=== PATIENT | male | born 1965 | race Two or more races ===

== ENCOUNTER 2022-04-01 05:37 | Inpatient (IN) | payer SELFPAY ==
[~2022-04-01] VITALS: Ht 170.2 cm; Wt 78.2 kg
[2022-04-01 06:30] LABS: BASOPHILS % (AUTO) 0.1 % (0-1); EOSINOPHILS % (AUTO) 0.1 % (0-6); HEMATOCRIT 44.5 % (42.0-52.0); HEMOGLOBIN 14.8 g/dl (14.0-17.9); LYMPHOCYTES # (AUTO) 0.7 X10'3 (1.1-4.8); LYMPHOCYTES % (AUTO) 5.9 % (21-51); MEAN CORPUSCULAR HEMOGLOBIN 29.8 PG (27.0-31.0); MEAN CORPUSCULAR HGB CONC 33.4 g/dL (33.0-36.5); MEAN CORPUSCULAR VOLUME 89.2 FL (78-98); MEAN PLATELET VOLUME 9.2 FL (7.4-10.4); MONOCYTES # (AUTO) 0.5 X10'3 (0-0.9); MONOCYTES % (AUTO) 4.9 % (2-12); NEUTROPHILS # (AUTO) 9.9 X10'3 (1.8-7.7); PLATELET COUNT 145 X10'3 (140-440); RED BLOOD COUNT 4.98 X10'6 (4.70-6.10); RED CELL DISTRIBUTION WIDTH 13.3 % (11.5-14.5); WHITE BLOOD COUNT 11.2 X10'3 (4.5-11.0)
[2022-04-01] MEDS ORDERED: normal saline 1000ML IV soln IVB ONE (06:45)
[2022-04-01 06:46] LABS: ALANINE AMINOTRANSFERASE 599 U/L (12-78); ALBUMIN/GLOBULIN RATIO 1.1 (1.1-1.5); ALKALINE PHOSPHATASE 120 IU/L (46-116); ANION GAP 7 (8-16); ASPARTATE AMINO TRANSFERASE 753 U/L (10-37); BILIRUBIN,TOTAL 1.2 MG/DL (0.1-1.0); BLOOD UREA NITROGEN 16 MG/DL (7-18); BUN/CREATININE RATIO 17.6 (5.4-32.0); CALCIUM 8.5 MG/DL (8.5-10.1); CHLORIDE 101 MMOL/L (99-107); CREATININE 0.91 MG/DL (0.60-1.10); GLUCOSE 162 MG/DL (70-104); POTASSIUM 3.9 MMOL/L (3.5-5.1); SODIUM 134 MMOL/L (135-145); TOTAL CARBON DIOXIDE 26.2 MMOL/L (24-32); TOTAL PROTEIN 7.8 G/DL (6.4-8.2); eGFR 86 ML/MIN
[2022-04-01] MEDS ORDERED: glycopyrrolate 0.2mg/ml inj IV ONE (06:55)
[2022-04-01 07:31] LABS: LIPASE 20419 U/L (73-393)
[2022-04-01] MEDS ORDERED: morphine 4 MG/ML inj SYRINge IV ONE (07:40)
[2022-04-01] MEDS ORDERED: ondansetron/PF 4mg/2ml inj IV ONE (07:40)
[2022-04-01 07:48] LABS: CLARITY,URINE CLEAR (Clear); COLOR,URINE YELLOW (Yellow); GLUCOSE, URINE 100 mg/dl (Neg); KETONES,URINE TRACE mg/dl (Neg); LEUKOCYTE ESTERASE ,URINE NEGATIVE (Neg); NITRITES, URINE NEGATIVE (Neg); OCCULT BLOOD,URINE NEGATIVE (Neg); PROTEIN,URINE NEGATIVE (Neg); UROBILINOGEN,URINE 0.2 E.U/dL (0.2-1.0)
[2022-04-01] MEDS ORDERED: iohexol 300mg/ml 100ml inj. ONE (07:54)
[2022-04-01 07:55] LABS: UA COLLECTION TYPE NON-SPECIFIED
[2022-04-01] MEDS ORDERED: magnesium Cl slow-release 64mg tablet PO PRN (11:30)
[2022-04-01] MEDS ORDERED: magnesium hydroxide 30ml (MOM) UD suspension PO PRN (11:30)
[2022-04-01] MEDS ORDERED: magnesium 4gm in 100ml NS 100 ML IV PRN (11:30)
[2022-04-01] MEDS ORDERED: potassium Cl 40MEQ/1/2NS 520ml 520 ML IV PRN (11:30)
[2022-04-01] MEDS ORDERED: potassium Cl 20 mEq SR tablet PO PRN ×2 (11:30)
[2022-04-01] MEDS ORDERED: mag hydrox/Alum hydrox/simeth 30ml oral suspension PO PRN (11:30)
[2022-04-01] MEDS ORDERED: ondansetron/PF 4mg/2ml inj IV PRN (11:30)
[2022-04-01] MEDS ORDERED: metoclopramide 5 mg/ml inj IV PRN (11:30)
[2022-04-01] MEDS ORDERED: acetaminophen 325mg tablet PO PRN (11:30)
[2022-04-01] MEDS ORDERED: HYDROmorphone/PF 0.2 MG/ML SYRINGE IV PRN (11:30)
[2022-04-01] MEDS: normal saline 1000ml 1,000 ML IV SCH ×2 (11:48→18:10)
[2022-04-01] MEDS ORDERED: CLOP75TA34 PO (13:18)
[2022-04-01] MEDS ORDERED: ATOR-2 PO (14:40)
[2022-04-01] MEDS ORDERED: ASPI-611 PO (14:40)
[2022-04-01] MEDS ORDERED: CLOP75TA33 PO ×2 (14:41→14:45)
[2022-04-01] MEDS: docusate sod 100mg capsule PO SCH (20:00)
[2022-04-01] MEDS: K and/or MAG REPLACEMENT MC SCH (20:05)
[2022-04-01] MEDS: enoxaparin 30mg/0.3ml syringe SQ SCH (20:14)
--- NOTE | 2022-04-01 22:42 | NUR ---
Patient sleeping at this time, no distress noted. Chest rise noted even, breathing unlabored. Maintained on NSS infusion as ordered.
[2022-04-02] MEDS: normal saline 1000ml 1,000 ML IV SCH ×4 (00:52→23:10)
--- NOTE | 2022-04-02 02:56 | NUR ---
Report called to Jessica on Tele 3, patient cleared for transport to receiving unit.
[2022-04-02 06:34] LABS: BASOPHILS % (AUTO) 0.3 % (0-1); EOSINOPHILS # (AUTO) 0.3 X10'3 (0-0.9); EOSINOPHILS % (AUTO) 4.7 % (0-6); HEMATOCRIT 40.1 % (42.0-52.0); HEMOGLOBIN 13.1 g/dl (14.0-17.9); LYMPHOCYTES # (AUTO) 1.8 X10'3 (1.1-4.8); MEAN CORPUSCULAR HEMOGLOBIN 29.4 PG (27.0-31.0); MEAN CORPUSCULAR HGB CONC 32.6 g/dL (33.0-36.5); MEAN CORPUSCULAR VOLUME 89.9 FL (78-98); MEAN PLATELET VOLUME 9.2 FL (7.4-10.4); MONOCYTES # (AUTO) 0.5 X10'3 (0-0.9); NEUTROPHILS # (AUTO) 3.6 X10'3 (1.8-7.7); PLATELET COUNT 131 X10'3 (140-440); RED BLOOD COUNT 4.46 X10'6 (4.70-6.10); RED CELL DISTRIBUTION WIDTH 13.7 % (11.5-14.5); WHITE BLOOD COUNT 6.2 X10'3 (4.5-11.0)
[2022-04-02 07:00] VITALS: BP 108/66
[2022-04-02 07:16] LABS: ALANINE AMINOTRANSFERASE 292 U/L (12-78); ALBUMIN/GLOBULIN RATIO 0.9 (1.1-1.5); ALKALINE PHOSPHATASE 94 IU/L (46-116); ANION GAP 3 (8-16); ASPARTATE AMINO TRANSFERASE 125 U/L (10-37); BILIRUBIN,TOTAL 1.4 MG/DL (0.1-1.0); BLOOD UREA NITROGEN 11 MG/DL (7-18); BUN/CREATININE RATIO 12.4 (5.4-32.0); CHLORIDE 106 MMOL/L (99-107); CREATININE 0.89 MG/DL (0.60-1.10); GLUCOSE 93 MG/DL (70-104); POTASSIUM 3.9 MMOL/L (3.5-5.1); SODIUM 138 MMOL/L (135-145); TOTAL CARBON DIOXIDE 28.6 MMOL/L (24-32); TOTAL PROTEIN 6.4 G/DL (6.4-8.2); eGFR 88 ML/MIN
[2022-04-02] MEDS: aspirin 81mg, enteric-coated 1 TAB TABLET.DR PO SCH (07:47)
[2022-04-02] MEDS: enoxaparin 30mg/0.3ml syringe SQ SCH ×2 (07:47→21:00)
[2022-04-02] MEDS: K and/or MAG REPLACEMENT MC SCH ×2 (08:00→20:00)
[2022-04-02] MEDS: docusate sod 100mg capsule PO SCH ×2 (08:00→21:00)
[2022-04-02 08:04] LABS: CALCIUM 7.8 MG/DL (8.5-10.1)
[2022-04-02 08:25] LABS: LIPASE 2017 U/L (73-393)
[2022-04-02 11:00] VITALS: BP 115/72
--- NOTE | 2022-04-02 12:26 | NUR ---
RN spoke to Dr. Vázquez at bedside. Dr. Vázquez informed RN that pt would likely need ERCP and that he would update RN later when he had more information.
[2022-04-02 15:00] VITALS: BP 111/69
[2022-04-02 18:00] VITALS: BP 115/64
[2022-04-02 22:00] VITALS: BP 112/65
[2022-04-03] VITALS (21 sets, daily range): BP systolic 108–155; BP diastolic 63–95
[2022-04-03 07:17] LABS: BASOPHILS % (AUTO) 0.3 % (0-1); EOSINOPHILS # (AUTO) 0.4 X10'3 (0-0.9); EOSINOPHILS % (AUTO) 5.9 % (0-6); HEMATOCRIT 39.4 % (42.0-52.0); LYMPHOCYTES % (AUTO) 28.2 % (21-51); MEAN CORPUSCULAR HEMOGLOBIN 29.5 PG (27.0-31.0); MEAN CORPUSCULAR VOLUME 89.6 FL (78-98); MEAN PLATELET VOLUME 9.5 FL (7.4-10.4); MONOCYTES # (AUTO) 0.7 X10'3 (0-0.9); MONOCYTES % (AUTO) 9.6 % (2-12); NEUTROPHILS # (AUTO) 3.9 X10'3 (1.8-7.7); PLATELET COUNT 133 X10'3 (140-440); RED BLOOD COUNT 4.39 X10'6 (4.70-6.10); RED CELL DISTRIBUTION WIDTH 13.5 % (11.5-14.5); WHITE BLOOD COUNT 6.9 X10'3 (4.5-11.0)
[2022-04-03] MEDS: normal saline 1000ml 1,000 ML IV SCH ×4 (07:46→23:06)
[2022-04-03] MEDS: atorvastatin 20mg tablet PO SCH (07:46)
[2022-04-03] MEDS: docusate sod 100mg capsule PO SCH ×2 (07:46→19:28)
[2022-04-03] MEDS: enoxaparin 30mg/0.3ml syringe SQ SCH ×2 (08:00→19:24)
[2022-04-03] MEDS: aspirin 81mg, enteric-coated 1 TAB TABLET.DR PO SCH (08:00)
[2022-04-03] MEDS: clopidogrel 75mg tablet PO SCH (08:00)
[2022-04-03] MEDS: K and/or MAG REPLACEMENT MC SCH ×2 (08:00→20:00)
[2022-04-03 08:30] LABS: ALANINE AMINOTRANSFERASE 175 U/L (12-78); ALBUMIN 2.9 G/DL (3.4-5.0); ALBUMIN/GLOBULIN RATIO 0.9 (1.1-1.5); ALKALINE PHOSPHATASE 83 IU/L (46-116); ANION GAP 8 (8-16); ASPARTATE AMINO TRANSFERASE 51 U/L (10-37); BILIRUBIN,TOTAL 1.1 MG/DL (0.1-1.0); BLOOD UREA NITROGEN 7 MG/DL (7-18); BUN/CREATININE RATIO 8.8 (5.4-32.0); CALCIUM 7.9 MG/DL (8.5-10.1); CHLORIDE 107 MMOL/L (99-107); GLUCOSE 98 MG/DL (70-104); POTASSIUM 3.6 MMOL/L (3.5-5.1); SODIUM 140 MMOL/L (135-145); TOTAL CARBON DIOXIDE 24.7 MMOL/L (24-32); TOTAL PROTEIN 6.3 G/DL (6.4-8.2); eGFR > 90 ML/MIN
[2022-04-03] MEDS ORDERED: LIDOcaine 1% 30ml preserv. free vial ONE (14:10)
[2022-04-03] MEDS ORDERED: BUPIVAcaine 0.5% inj/PF 30 ML ONE (14:11)
[2022-04-03] MEDS ORDERED: INDOCYANINE GREEN 25 MG/10 ML VIAL IV ONE (14:15)
[2022-04-03] MEDS ORDERED: meperidine/PF 25mg/ml syringe IV PRN ×6 (14:20→17:50)
[2022-04-03] MEDS ORDERED: ondansetron/PF 4mg/2ml inj IV PRN ×2 (14:20→17:50)
[2022-04-03] MEDS ORDERED: proCHLORperazine 10 MG/2 ml inj IV PRN ×2 (14:20→17:50)
[2022-04-03] MEDS ORDERED: morphine 2 MG/ML inj. syringe IV PRN ×2 (14:20→17:50)
[2022-04-03] MEDS ORDERED: morphine 4 MG/ML inj SYRINge IV PRN ×2 (14:20→17:50)
[2022-04-03] MEDS ORDERED: ringers solution, lacted 1,000 ML IV SCH (14:20)
--- NOTE | 2022-04-03 14:22 | NUR ---
Malnutrition consult: Pt reports 2-13 lb wt loss with decreased appetite per malnutrition risk screen with RN. Per EMR pt in OR for laparoscopic cholecystectomy. No documented wt hx in EMR though current documented wt is 116% IBW. Pt documented with 100% PO intake of first meal. No documented decrease in muscle strength or edema and pt appears well developed well nourished per physician note. Pt currently lacks a minimum of two criteria for malnutrition. Will continue to follow and further monitor qualifying criteria for malnutrition. Addendum: 04/03/22 at [address] Amended: Links added.
[2022-04-03] MEDS ORDERED: ondansetron/PF 4mg/2ml inj ONE (15:45)
[2022-04-03] MEDS ORDERED: sevoflurane 250ml liquid IH ONE (15:45)
[2022-04-03] MEDS ORDERED: dexamethasone sod phosphate 10mg/ml inj ONE (15:45)
[2022-04-03] MEDS ORDERED: midazolam 1 mg/ML 2ml injection ONE (15:49)
[2022-04-03] MEDS ORDERED: fentaNYL /PF 50mcg/ml 5ml ampule ONE (15:51)
[2022-04-03] MEDS ORDERED: BUPIVAcaine 0.5% inj/PF 30 ml vial IJ ONE (16:23)
[2022-04-03] MEDS ORDERED: propofol inj 20 ML IV ONE (16:40)
[2022-04-03] MEDS ORDERED: ceFAZolin 1000mg inj ONE ×2 (16:40)
[2022-04-03] MEDS ORDERED: neostigmine methylsulfate 1 MG/ML 10ml vial ONE ×2 (16:40→16:56)
[2022-04-03] MEDS ORDERED: LIDOcaine 2% (20mg/ml) 5ml vial ONE (16:40)
[2022-04-03] MEDS ORDERED: rocuronium 10mg/ml inj IV ONE (16:40)
[2022-04-03] MEDS ORDERED: glycopyrrolate 0.2mg/ml inj ONE (16:56)
--- NOTE | 2022-04-03 17:05 | NUR ---
Received from OR via BED, accompanied by Anesthesiologist DR ESPARZA and report given by Anesthesiolgist. VSS, DENIES PAIN, LAP SITES X 4, ABLE TO MAKE NEEDS KNOWN
[2022-04-03] MEDS ORDERED: naloxone 0.4 mg/ml inj IV PRN (17:25)
[2022-04-03] MEDS ORDERED: HYDROcodone/acetaminophen 5mg/325mg tablet PO PRN (17:25)
--- NOTE | 2022-04-03 17:30 | NUR ---
NO CHANGES IN ASSESSMENT, PT RESTING COMFORTABLY, HAS TOLERATED WATER, LAP SITES-CDI, VSS, REPORT CALLED TO PRIMARY RN-ALL QUESTIONS ANSWERED, TAKEN TO FLOOR BACK TO RM [id number]-PRIMARY RN IN TO RECEIVE PT
[2022-04-03] MEDS: ringers solution, lacted 1,000 ML IV SCH (17:50)
[2022-04-03] MEDS ORDERED: acetaminophen 1,000mg/100ml IV 100 ML IV ONE (17:55)
--- NOTE | 2022-04-03 19:00 | NUR ---
Patient in room PCU 3024. I have received report from DINESH WALLS and had the opportunity to ask questions and assume patient care.
--- NOTE | 2022-04-03 19:03 | NUR ---
Problems reprioritized. Patient report given, questions answered & plan of care reviewed with Toshia WALLS, patient stable at transfer of care.
[2022-04-03] MEDS: HYDROmorphone inj. 0.5 MG/0.5 ML DISP.SYRIN IV PRN (19:28)
[2022-04-03] MEDS: HYDROcodone/acetaminophen 10/325mg tab PO PRN (23:05)
[2022-04-04] VITALS: BP 141/90
[2022-04-04 02:00] VITALS: BP 143/89
[2022-04-04] MEDS: ringers solution, lacted 1,000 ML IV SCH (03:50)
[2022-04-04 04:00] VITALS: BP 138/88
[2022-04-04] MEDS: HYDROmorphone inj. 0.5 MG/0.5 ML DISP.SYRIN IV PRN (04:30)
[2022-04-04] MEDS: normal saline 1000ml 1,000 ML IV SCH (06:10)
[2022-04-04 06:22] LABS: MEAN CORPUSCULAR VOLUME 89.2 FL (78-98)
[2022-04-04 06:25] LABS: BASOPHILS % (AUTO) 0.1 % (0-1); EOSINOPHILS % (AUTO) 0 % (0-6); HEMATOCRIT 39.9 % (42.0-52.0); HEMOGLOBIN 13.6 g/dl (14.0-17.9); LYMPHOCYTES # (AUTO) 0.9 X10'3 (1.1-4.8); LYMPHOCYTES % (AUTO) 8.4 % (21-51); MEAN CORPUSCULAR HEMOGLOBIN 30.3 PG (27.0-31.0); MEAN PLATELET VOLUME 9.3 FL (7.4-10.4); MONOCYTES # (AUTO) 0.5 X10'3 (0-0.9); MONOCYTES % (AUTO) 4.7 % (2-12); NEUTROPHILS % (AUTO) 86.8 % (42-75); PLATELET COUNT 140 X10'3 (140-440); RED BLOOD COUNT 4.47 X10'6 (4.70-6.10); RED CELL DISTRIBUTION WIDTH 13.4 % (11.5-14.5); WHITE BLOOD COUNT 10.3 X10'3 (4.5-11.0)
[2022-04-04 06:30] LABS: ALANINE AMINOTRANSFERASE 164 U/L (12-78); ALBUMIN 2.9 G/DL (3.4-5.0); ALBUMIN/GLOBULIN RATIO 0.7 (1.1-1.5); ALKALINE PHOSPHATASE 88 IU/L (46-116); ANION GAP 6 (8-16); ASPARTATE AMINO TRANSFERASE 87 U/L (10-37); BILIRUBIN,TOTAL 0.9 MG/DL (0.1-1.0); BLOOD UREA NITROGEN 7 MG/DL (7-18); CALCIUM 8.1 MG/DL (8.5-10.1); CHLORIDE 103 MMOL/L (99-107); CREATININE 0.87 MG/DL (0.60-1.10); GLUCOSE 163 MG/DL (70-104); MAGNESIUM 1.9 MG/DL (1.5-2.4); POTASSIUM 4.2 MMOL/L (3.5-5.1); SODIUM 135 MMOL/L (135-145); TOTAL CARBON DIOXIDE 25.8 MMOL/L (24-32); TOTAL PROTEIN 6.8 G/DL (6.4-8.2); eGFR 90 ML/MIN
--- NOTE | 2022-04-04 06:42 | NUR ---
Problems reprioritized. Patient report given, questions answered & plan of care reviewed with ROB WALLS.
--- NOTE | 2022-04-04 06:45 | NUR ---
Patient in room PCU 3024. I have received report from Toshia WALLS and had the opportunity to ask questions and assume patient care.
[2022-04-04] MEDS: clopidogrel 75mg tablet PO SCH (07:37)
[2022-04-04] MEDS: docusate sod 100mg capsule PO SCH (07:38)
[2022-04-04] MEDS: enoxaparin 30mg/0.3ml syringe SQ SCH (07:38)
[2022-04-04] MEDS: atorvastatin 20mg tablet PO SCH (07:38)
[2022-04-04] MEDS: aspirin 81mg, enteric-coated 1 TAB TABLET.DR PO SCH (07:38)
[2022-04-04] MEDS: HYDROcodone/acetaminophen 10/325mg tab PO PRN (10:48)
--- NOTE | 2022-04-04 12:28 | NUR ---
Paged Dr. Vázquez regarding pt being discharged and needing pain meds. Dr. Rose wants norco 5 ordered and I need it added to the discharge for the patient. Message: [id number], Jimy Andrean. Dr Rose wants to send the patient with Lasara 5mg, one Q6hr for five days PRN. Could you please add this to discharge and print it for me? I can come grab it. Thanks. Claudia COX BRANSON [phone].
--- NOTE | 2022-04-04 13:22 | NUR ---
Pt stable for discharge per Dr. Vázquez and Dr. Rose. All discharge instructions reviewed with patient and spouse, and all questions answered. Pt verbalized understanding. Only new prescriptions is a written script of [place] 5mg one every 6 hours PRN. PIV discontinued, cannula intact. Tele discontinued. All belongings collected and sent with patient. Wheeled to lobby via nursing staff. Picked up by family.
== END 2022-04-04 13:06 | disposition home or self-care (01) | DRG 419 ==
LOC: ER 05:39 → ED HOLD 11:30 → PCU 3S 04-02 03:00
PROVIDERS: ADMIT Family Medicine; ATTEND Family Medicine
PROC: BW211ZZ Computerized Tomography (CT Scan) of Abdomen and Pelvis using Low Osmolar Contrast (ICD-10-PCS; 2022-04-01)
PROC: 8E0W4CZ Robotic Assisted Procedure of Trunk Region, Percutaneous Endoscopic Approach (ICD-10-PCS; 2022-04-03)
PROC: BF532Z0 Other Imaging of Gallbladder and Bile Ducts using Fluorescing Agent, Intraoperative (ICD-10-PCS; 2022-04-03)
PROC: 0FT44ZZ Resection of Gallbladder, Percutaneous Endoscopic Approach (ICD-10-PCS; principal; 2022-04-03 15:45)
DX: K85.10 Biliary acute pancreatitis without necrosis or infection (principal); E78.00 Pure hypercholesterolemia, unspecified; R74.01 Elevation of levels of liver transaminase levels; K80.20 Calculus of gallbladder without cholecystitis without obstruction; R74.8 Abnormal levels of other serum enzymes; Z86.73 Personal history of transient ischemic attack (TIA), and cerebral infarction without residual deficits; Z79.899 Other long term (current) drug therapy; Z79.82 Long term (current) use of aspirin
CPT/HCPCS: 99285; Z7506; Z7508; 36415; 74177; 74181; 76700; 80053; 81003; 83690; 83735; 85025; 87081; 93005; A4215; A4618; A7000; G0378; J0131; J0690; J1100; J1170; J1650; J2175; J2250; J2270; J2405; J2704; J2710; J3010; J3490; J7030; J7120; Q9967; S0020